=== PATIENT | male | born 1990 | race African-American/Black ===

== ENCOUNTER 2021-09-26 09:02 | Emergency (ER) | payer OTHER, BC ==
[~2021-09-26] VITALS: Ht 185.4 cm; Wt 77.3 kg
[2021-09-26 09:21] VITALS: TEMP 98.7
[2021-09-26 10:43] VITALS: BP 132/87; PULSE 105
== END 2021-09-26 10:53 | disposition home or self-care (01) ==
LOC: COL.ER 09:02
DX: S42.002A Fracture of unspecified part of left clavicle, initial encounter for closed fracture (principal); S50.812A Abrasion of left forearm, initial encounter; S50.312A Abrasion of left elbow, initial encounter; V27.0XXA Motorcycle driver injured in collision with fixed or stationary object in nontraffic accident, initial encounter; Y92.410 Unspecified street and highway as the place of occurrence of the external cause